=== PATIENT | female | born 1965 | race Caucasian/White ===

== ENCOUNTER 2019-10-06 14:38 | Emergency (ER) | payer OTHER, SELFPAY ==
[2019-10-06 14:40] VITALS: BP 130/111; PULSE 167; RESP 28; TEMP 36.5; O2SAT 98
--- NOTE | 2019-10-06 15:00 | ECG_ITS ---
Measurements Intervals [place] Rate: 161 P: IN: 0 QRS: 77 QRSD: 88 T: -32 QT: 265 QTc: 434 Interpretive Statements SUPRAVENTRICULAR TACHYCARDIA CANNOT RULE OUT SEPTAL INFARCT, AGE INDETERMINATE BORDERLINE ST-T WAVE ABNORMALITY- INFERIOR LEADS BASELINE ARTIFACT- I, II, III, AVR, AVL, AVF ABNORMAL ECG Electronically Signed On 10-07-2019 8:00:02 CDT by Percy Roca D.O.
--- NOTE | 2019-10-06 15:03 | ED.CHESTPAIN ---
HPI - Chest Pain General Stated Complaint: chest pain and trouble breathing Time Seen by Provider: 10/06/19 14:55 Source: patient and RN notes reviewed Mode of arrival: ambulatory Limitations: no limitations History of Present Illness HPI narrative: Patient presents today complaining of a sudden onset sternal chest pain radiating to the back and left shoulder since last night when she was putting away groceries. She also reports racing heart, shortness of breath, sweating, and nausea. Pain and symptoms have been present and constant since onset. She has tried no medication for symptoms prior to arrival. Patient has asthma and has been wheezing as well, but is out of her albuterol inhaler. She occasionally wears O2 via nasal cannula at home, but could not tell me for what diagnosis, and tried this last night without relief. Patient smokes half pack per day. Patient denies any personal cardiac history. Mother, father, and grandfather with history of OR MD complaint: chest pain and other (Shortness of breath) Related Data Allergies Allergy/AdvReac Type Severity Reaction Status Date / Time No Known Allergies Allergy Unverified 04/15/16 15:31 Review of Systems Review of Systems: Narrative: CONSTITUTIONAL: Denies body aches, fever, chills, or sweats. EYES: Denies visual changes, redness, or discharge. ENT: Denies rhinorrhea, congestion, sore throat, or otalgia. CARDIOVASCULAR: Denies palpitations, or edema.+ Chest pain, racing heart RESPIRATORY: Denies cough. + Wheezing, shortness of breath GASTROINTESTINAL: Denies abdominal pain, nausea, vomiting, or diarrhea. GENITOURINARY: Denies dysuria or hematuria. SKIN: Denies rash, itching, or wounds. MUSCULOSKELETAL: Denies back pain, joint pain, or myalgia. NEUROLOGIC: Denies headache, numbness, tingling, or weakness. PSYCH: Denies depression or anxiety. [facility] Past Medical History Medical History (Updated 10/06/19 @ 15:13 by Aurora Yeung, INDUSTRIAL ENGINEERING PROFESSOR, ) Asthma Exam Narrative: Exam Narrative: GENERAL: Ill-appearing, well-nourished, and in no acute distress. Diaphoretic HEAD: Normocephalic, atraumatic. EYES: EOMI. No redness or drainage. Conjunctivae normal. ENT: Mucous membranes pink and moist. NECK: Normal AROM. Supple. No lymphadenopathy. CHEST: No respiratory distress. Expiratory wheezing throughout. Chest is nontender HEART: Regular rate. + Tachycardia. No murmur appreciated. Normal peripheral pulses. ABDOMEN: Soft, nontender, nondistended, normal active bowel sounds. MUSCULOSKELETAL: No bony tenderness. EXTREMITIES: Normal range of motion. No edema. SKIN: Warm, dry, no rash. Capillary refill normal. Normal skin turgor. NEURO: No focal deficits. Alert and oriented x3. Gait steady. PSYCH: Normal affect. No signs of depression or anxiety. Course Course Emergency Course: Attempted vagal maneuver, but did not convert rhythm. Vital Signs Vital signs: Vital Signs Temperature 97.7 F 10/06/19 14:45 Pulse Rate 167 H 10/06/19 14:45 Respiratory Rate 28 H 10/06/19 14:45 Blood Pressure 130/111 H 10/06/19 14:45 Pulse Oximetry 98 10/06/19 14:45 Temperature 97.7 F 10/06/19 14:45 Pulse Rate 167 H 10/06/19 14:45 Respiratory Rate 28 H 10/06/19 14:45 Blood Pressure 130/111 H 10/06/19 14:45 Pulse Oximetry 98 10/06/19 14:45 Transfer Transfered to: [facility] Transportation: ALS Transfer rationale: Chest pain, shortness of breath, SVT Accepting physician: Report given to CEZAR Lei MDM - Chest Pain Differential Diagnosis Differential diagnosis: Likely st elevation myocardial infarction and other (SVT, PE, tachycardia) ECG Data EKG #1: Attestation: I personally reviewed and interpreted this ECG as follows: ECG completion date: 10/06/19 ECG completion time: 14:57 Prior ECG tracings: not available for review Interpretation: Supraventricular tachycardia. Septal myocardial infarction, probably old
== END 2019-10-06 15:14 | disposition short-term general hospital (02) ==
PROVIDERS: Emergency Provider Nurse Practitioner; PCP Internal Medicine
DX: I47.1 Supraventricular tachycardia (principal); R07.9 Chest pain, unspecified; R06.02 Shortness of breath; J45.909 Unspecified asthma, uncomplicated; F17.210 Nicotine dependence, cigarettes, uncomplicated
CPT/HCPCS: 93005; 99215; G0463

== ENCOUNTER 2021-12-04 11:55 | Emergency (ER) | payer OTHER, SELFPAY ==
[2021-12-04 12:05] VITALS: BP 146/75; PULSE 85; RESP 16; TEMP 35.5; O2SAT 97
[2021-12-04 12:06] VITALS: BP 146/75; PULSE 85; RESP 16; TEMP 35.5; O2SAT 97
--- NOTE | 2021-12-04 12:09 | ED.SKABFB ---
HPI - Skin/Abscess/Foreign Bdy General Chief complaint: Skin/Abscess/Foreign Body Stated complaint: lac on right hand Time Seen by Provider: 12/04/21 12:10 Source: patient, RN notes reviewed and old records reviewed Mode of arrival: ambulatory Limitations: no limitations History of Present Illness HPI narrative: 56 year old female who presents to [facility] care with complaints to laceration to her right dorsal distal hand above the 5th finger about 30 minutes ago while washing a glass that busted. Patient has full mobility of her 5th finger right hand and of right hand with strong right radial pulse, denies any tingling or numbness to her right hand or fingers. Patient reports that she put some new skin liquid to stop the bleeding. She states that her tetanus is not up to date. MD complaint: laceration Onset (ago): minute(s) (within past 30 minutes) Tetanus up to date: no Severity scale (1-10): 3 Treatments prior to arrival: other ( NewSkin adhesive bandage on it) Related Data Home Medications Medication Instructions Recorded Confirmed Oxygen 10/06/19 10/06/19 albuterol sulfate 90 mcg/actuation 2 puff inhalation QID PRN 10/06/19 10/06/19 aerosol inhaler (Ventolin HFA) Shortness Of Breath Or Wheezing Allergies Allergy/AdvReac Type Severity Reaction Status Date / Time No Known Allergies Allergy Verified 10/06/19 15:51 Review of Systems Review of Systems: CONSTITUTIONAL: Denies fever, chills, or sweats. EYES: Denies visual changes, redness, or discharge. ENT: Denies rhinorrhea, congestion, sore throat, or otalgia. CARDIOVASCULAR: Denies chest pain, palpitations, or edema. RESPIRATORY: Dry cough denies acute dyspnea at this time history of asthma GASTROINTESTINAL: Denies abdominal pain, nausea, vomiting, or diarrhea. GENITOURINARY: Denies dysuria or hematuria SKIN: Denies rash or itching.positive for 1cm laceration to dorsal distal right hand above 5th finger MUSCULOSKELETAL: Denies back pain, joint pain, or myalgia. NEUROLOGIC: Denies headache, numbness, or weakness. PSYCHIATRIC: Denies anxiety or depression. All systems reviewed & are unremarkable except as noted in HPI and below PMFSH Past Medical History Medical History (Updated 12/05/21 @ 00:01 by Background Daemon) Asthma Surgical History Surgical History (Updated 12/05/21 @ 15:21 by Denita Navarrete NP) History of ankle surgery ORIF pins and sari placed History of cholecystectomy Social History Social History (Updated 12/05/21 @ 15:12 by Denita Navarrete NP) Smoking packs per day: 0.5 Smoking cigarettes per day: 10.0 Smoking status: Current every day smoker Alcohol intake: unknown Substance use: never Living arrangements: with family Gender identity (if verbalized by the patient): Female Comments At time of signature, agree with nursing past medical, surgical, social and family history. There is no relevant family history pertinent to the presenting complaint Exam Narrative: GENERAL: Well-appearing, well-nourished, and in no acute distress. HEAD: Normocephalic, atraumatic. EYES: PERRLA and EOMI. ENT: Nares clear, no rhinorrhea or epistaxis. Mucous membranes moist.TM's normal with good light reflex, throat pink with no lesions or exudates or tonsil swelling. NECK: Supple.no lymphadenopathy CHEST: Clear to auscultation. No respiratory distress.SAO2 97% on room air HEART: Regular rate and rhythm. No murmur heard. Normal peripheral pulses. ABDOMEN: Soft, nontender, nondistended, normal active bowel sounds. EXTREMITIES: Normal range of motion. No edema. SKIN: Warm, dry, no rash. 1cm laceration to right dorsal distal hand above 5th finger, cirulation sensation and mobility is intact NEURO: No focal deficits. Alert and oriented x3. Course Course Level of Care: Express Care Visit Vital Signs Vital signs: Vital Signs Temperature 35.5 C L 12/04/21 12:05 Pulse Rate 85 12/04/21 12:05 Respiratory Rate 16 12/04/21 12:05 Blo
[2021-12-04] MEDS: TETANUS,DIPHTHERIA,AC PERTUSSIS ADULT (0.5 ML) BOOSTRIX IM (12:16)
== END 2021-12-04 13:07 | disposition home or self-care (01) ==
PROVIDERS: Emergency Provider Registered Nurse; PCP Internal Medicine
DX: S61.411A Laceration without foreign body of right hand, initial encounter (principal); W25.XXXA Contact with sharp glass, initial encounter; Y93.G1 Activity, food preparation and clean up; J45.909 Unspecified asthma, uncomplicated; F17.210 Nicotine dependence, cigarettes, uncomplicated; Z23 Encounter for immunization
CPT/HCPCS: 12001; 90471; 90715; 99212; G0463

== ENCOUNTER 2022-07-30 11:57 | Emergency (ER) | payer OTHER, SELFPAY ==
[2022-07-30 12:05] VITALS: BP 145/94; PULSE 81; RESP 20; TEMP 36.9; O2SAT 98
--- NOTE | 2022-07-30 12:18 | ED.URI ---
HPI - URI/Sore Throat General Chief Complaint: Upper Respiratory Infection Stated Complaint: covid test Time Seen by Provider: 07/30/22 12:18 Source: patient Mode of arrival: ambulatory Limitations: no limitations History of Present Illness HPI Narrative: 56-year-old female presented requesting a COVID test. She states she has had COVID exposure, but is unsure of the date. She was notified today. She currently denies symptoms of shortness breath, wheezing, cough, sinus congestion, nausea, vomiting, fevers or chills. Patient was treated for asthma exacerbation by PCP about 3 weeks ago and reports improvement of those symptoms. Related Data Home Medications Medication Instructions Recorded Confirmed albuterol sulfate 90 mcg/actuation 2 puff inhalation QID PRN 10/06/19 10/06/19 aerosol inhaler (Ventolin HFA) Shortness Of Breath Or Wheezing tiotropium bromide 18 mcg capsule 18 mcg inhalation DAILY 07/30/22 07/30/22 with inhalation device (Spiriva with HandiHaler) Allergies Allergy/AdvReac Type Severity Reaction Status Date / Time No Known Allergies Allergy Verified 07/30/22 12:23 Review of Systems Review of Systems: CONSTITUTIONAL: Denies body aches, fever, chills, or sweats. EYES: Denies visual changes, redness, or discharge. ENT: Denies rhinorrhea, congestion, sore throat, or otalgia. CARDIOVASCULAR: Denies chest pain, palpitations, or edema. RESPIRATORY: Denies cough, sob, wheezing. GASTROINTESTINAL: Denies abdominal pain, nausea, vomiting, or diarrhea. SKIN: Denies rash, itching, or wounds. MUSCULOSKELETAL: Denies back pain, joint pain, or myalgia. NEUROLOGIC: Denies headache, numbness, tingling, or weakness. PSYCH: Denies depression or anxiety. All systems reviewed & are unremarkable except as noted in HPI and below PMFSH Past Medical History Medical History Asthma Surgical History Surgical History History of ankle surgery ORIF pins and sari placed History of cholecystectomy Social History Social History Smoking packs per day: 0.5 Smoking cigarettes per day: 10.0 Smoking status: Current every day smoker Alcohol intake: unknown Substance use: never Living arrangements: with family Gender identity (if verbalized by the patient): Female Comments At time of signature, I have reviewed and agree with nursing past medical, surgical, social and family history unless otherwise noted. Please see nursing chart for further information. There is no relevant family history pertinent to the presenting complaint Exam Narrative: GENERAL: Well-appearing, in no acute distress. EYES: EOMI. No redness or drainage. Conjunctivae normal. ENT: Mucous membranes pink and moist. No rhinorrhea. TMs normal bilaterally. Throat normal. Uvula midline. CHEST: No respiratory distress. Lungs diminished to bases HEART: Regular rate and rhythm. No murmur appreciated. ABDOMEN: Soft, nontender, nondistended, normal active bowel sounds. SKIN: Warm, dry, no rash. Capillary refill normal. Normal skin turgor. NEURO: Alert and oriented x3. Gait steady. PSYCH: Normal affect. Course Course Emergency Course: Patient is aware of diagnosis, understands and agrees to treatment plan. Anticipatory guidance given. Patient agrees to follow-up as directed and is aware of reasons to seek care at the emergency department. Portions of this record may have been created with voice recognition software Level of Care: Express Care Visit Vital Signs Vital signs: Vital Signs Temperature 98.5 F 07/30/22 12:05 Pulse Rate 81 07/30/22 12:05 Respiratory Rate 20 07/30/22 12:05 Blood Pressure 145/94 H 07/30/22 12:05 Pulse Oximetry 98 07/30/22 12:05 Oxygen Delivery Room Air 07/30/22 12:05 Temperature 98.5 F 07/30/22 12:05 Pul
== END 2022-07-30 12:27 | disposition home or self-care (01) ==
PROVIDERS: Emergency Provider Nurse Practitioner Family
DX: Z20.822 Contact with and (suspected) exposure to COVID-19 (principal); F17.210 Nicotine dependence, cigarettes, uncomplicated
CPT/HCPCS: 87426; 99212; C9803; G0463

== ENCOUNTER 2022-12-08 15:13 | Emergency (ER) | payer OTHER, SELFPAY ==
[2022-12-08 15:25] VITALS: BP 152/76; PULSE 81; RESP 18; TEMP 36; O2SAT 100
--- NOTE | 2022-12-08 15:47 | ED.NAVMDI ---
HPI - Nausea/Vomiting/Diarrhea General Chief complaint: Nausea/Vomiting/Diarrhea Stated complaint: passing blood clots/nausea Time Seen by Provider: 12/08/22 15:30 Source: patient Mode of arrival: ambulatory Limitations: no limitations History of Present Illness HPI Narrative: Amparo is a 57-year-old female patient presenting to the clinic today with complaints of nausea, abdominal pain, and rectal bleeding x 2 days. She reports that she has passing blood clots from her bowels. History of menopause. Is having paralyzed abdominal pain but mostly in the mid abdomen. No fever or chills. Does report some weakness but denies any chest pain or shortness of breath. Related Data Home Medications Medication Instructions Recorded Confirmed albuterol sulfate 90 mcg/actuation 2 puff inhalation QID PRN 10/06/19 07/30/22 aerosol inhaler (Ventolin HFA) Shortness Of Breath Or Wheezing fluticasone propionate 110 puff inhalation BID 12/08/22 mcg/actuation HFA aerosol inhaler (Flovent HFA) Allergies Allergy/AdvReac Type Severity Reaction Status Date / Time No Known Allergies Allergy Verified 12/08/22 15:33 Review of Systems Review of Systems: Pertinent positives per HPI. Patient denies any fever, chills, rash, headache, visual changes, dizziness, cough, runny nose, sore throat, shortness of breath, chest pain, palpitations,constipation, or any urinary issues. [facility] Past Medical History Medical History Asthma Surgical History Surgical History History of ankle surgery ORIF pins and sari placed History of cholecystectomy Social History Social History Smoking packs per day: 0.5 Smoking cigarettes per day: 10.0 Smoking status: Current every day smoker Alcohol intake: unknown Substance use: never Living arrangements: with family Gender identity (if verbalized by the patient): Female Comments At the time of my signature, I reviewed and agree with the nursing past medical, surgical, social, and family history. There is no relevant family history pertinent to the patient complaint. Exam Narrative: General: Well-developed, obese, in no apparent distress. Head: Normocephalic, atraumatic. Cardio: Regular rate and rhythm, s1 and s2 normal, no murmur appreciated. Resp: Clear to auscultation bilaterally, no rhonchi, rales, wheezing or rubs. Abdomen: Soft, pliable, distended, abdominal/umbilical hernia noted with bearing down-reducible, bowel sounds present in all quadrants, generalized tender to palpation but mostly over the mid abdomen, no organomegly, no CVAT tenderness. Course Course Emergency Course: Portions of this record may have been created with voice recognition software. Level of Care: Express Care Visit Vital Signs Vital signs: Vital Signs Temperature 36.0 C L 12/08/22 15:25 Pulse Rate 81 12/08/22 15:25 Respiratory Rate 18 12/08/22 15:25 Blood Pressure 152/76 H 12/08/22 15:25 Pulse Oximetry 100 12/08/22 15:25 Oxygen Delivery Room Air 12/08/22 15:25 Temperature 36.0 C L 12/08/22 15:25 Pulse Rate 81 12/08/22 15:25 Respiratory Rate 18 12/08/22 15:25 Blood Pressure 152/76 H 12/08/22 15:25 Pulse Oximetry 100 12/08/22 15:25 Oxygen Delivery Room Air 12/08/22 15:25 Vital signs reviewed Transfer Transfered to: [facility] Transportation: Other (private car) Transfer rationale: GI bleeding, abdomen pain, nausea Accepting physician: Dr. Sun Transfer comments: via private car. VS stable. MDM - Nausea/Vomiting/Diarrhea MDM Narrative Medical decision making narrative: At the time of visit patient is resting on the exam table. Recommend transfer to the ER for further evaluation for GI bleed. Patient agrees to transfer. Patient would lik
== END 2022-12-08 15:45 | disposition short-term general hospital (02) ==
PROVIDERS: Emergency Provider Nurse Practitioner Family
DX: K92.2 Gastrointestinal hemorrhage, unspecified (principal); R10.84 Generalized abdominal pain; R11.0 Nausea; J45.909 Unspecified asthma, uncomplicated; F17.210 Nicotine dependence, cigarettes, uncomplicated
CPT/HCPCS: 99213; G0463